=== PATIENT | female | born 1950 | race Caucasian/White ===

== ENCOUNTER 2019-08-09 07:34 | Outpatient (CLI) | payer MEDICARE ==
--- NOTE | 2019-08-12 07:49 | ULT ---
Exam: Bilateral renal ultrasound HISTORY: Complete uterine prolapse COMPARISON: None FINDINGS: Right kidney: Normal cortical echotexture. No hydronephrosis. Anechoic focus in the upper pole the ri ght kidney measures 1.9 x 2.8 x 2.6 cm, compatible with a cyst Right kidney measurements: 11.3 x 5.1 x 6.1 cm. Left kidney: Normal cortical echotexture. No hydronephrosis Left kidney measurements 10.6 x 5.0 X 5.0 cm. Urinary bladder: Normal mucosa. Prevoid volume 151 mL IMPRESSION: No hydronephrosis.
== END 2019-08-09 07:35 | disposition home or self-care (01) ==
LOC: ULT 07:34
DX: N81.3 Complete uterovaginal prolapse (principal)
CPT/HCPCS: 76770